=== PATIENT | female | born 1970 | race Caucasian/White ===

== ENCOUNTER 2016-04-10 07:09 | Emergency (ER) | payer OTHER ==
[2016-04-10 07:22] VITALS: BP 118/71; PULSE 62; TEMP 97.8; BMI 32.9
[2016-04-10] MEDS ORDERED: predniSONE 20 MG TABLET (UD) PO ONE (08:20)
[2016-04-10] MEDS ORDERED: ALBUTEROL SO4 2.5/IPRATROPIUM 0.5 INH SOL 3 ML VIAL.NEB. NEB ONE (08:23)
--- NOTE | 2016-04-10 08:28 | PDOC ---
History of Present Illness - General Chief Complaint: Asthma Stated Complaint: ASTHMA/DIFF BREATHING Time Seen by Provider: 04/10/16 08:16 History Source: Patient - History of Present Illness Timing/Duration: reports: this morning Severity: reports: moderate Associated Symptoms: reports: shortness of breath, wheezing. denies: cough, fever/chills Past History - Past Medical History Allergies/Adverse Reactions: Allergies Allergy/AdvReac Type Severity Reaction Status Date / Time No Known Allergies Allergy Verified 04/10/16 07:19 Home Medications: Ambulatory Orders Albuterol Sulfate Inhaler - [Ventolin Hfa *Inhaler*] 2 inh IH ONCE 04/24/11 Azithromycin [Zithromax Z-FILIPPO (5 DAYS) -] 250 mg PO ASDIR #6 tablet 12/17/12 Unobtainable Home Med List 0 dose .ROUTE UTDICT 12/17/12 Prednisone [Deltasone -] 40 mg PO DAILY #8 tablet 04/10/16 Asthma: Yes - Immunization History Td Vaccination: No - Psycho/Social/Smoking Cessation Hx Anxiety: No Suicidal Ideation: No Smoking Status: No Smoking History: Never smoked Have you smoked in the past 12 months: No Number of Cigarettes Smoked Daily: 0 Information on smoking cessation initiated: No Hx Alcohol Use: No Drug/Substance Use Hx: No Substance Use Type: None Review of Systems - Review of Systems Constitutional: No: Chills, Fever Respiratory: Yes: Shortness of Breath, Wheezing. No: Cough Cardiac (ROS): Yes: Chest Tightness *Physical Exam - Vital Signs Last Vital Signs Temp Pulse Resp BP Pulse Ox 97.8 F 62 18 118/71 96 04/10/16 07:19 04/10/16 07:19 04/10/16 07:19 04/10/16 07:19 04/10/16 07:19 - Physical Exam General Appearance: Yes: Appropriately Dressed. No: Apparent Distress HEENT: positive: Normal Voice Neck: positive: Supple Respiratory/Chest: positive: Lungs Clear, Normal Breath Sounds. negative: Respiratory Distress, Wheezing Cardiovascular: positive: Regular Rate, S1, S2 Integumentary: positive: Dry, Warm Neurologic: positive: Fully Oriented, Alert, Normal Mood/Affect Medical Decision Making - Medical Decision Making 04/10/16 08:28 45-year-old female history of asthma, uses albuterol pump at home, last admission over a year ago, no intubations and gets asthma exacerbations approximately once per month with various triggers per patient, presenting with shortness of breath, wheezing and chest tightness this a.m. while at work, not relieved by her pump. Denies cough, fever or chills. Patient reports having similar symptoms a week ago and used her daughter's albuterol pump which did relieve symptoms as per patient. Pt works "around chemicals" but uncertain if chemicals trigger her asthma. No tobacco exposure. Patient in no acute distress and stable w/ clear chest/lungs -nebs -pred -re-eval 04/10/16 08:35 04/10/16 09:25 Patient improved with nebs in ED. Lungs remain clear on re-eval and patient able to ambulate without shortness of breath. Stable for discharge with Pred burst and PMD follow-up as needed *DC/Admit/Observation/Transfer Diagnosis at time of Disposition: Asthma exacerbation - Discharge Dispostion Disposition: HOME Condition at time of disposition: Improved - Prescriptions Prescriptions: Prednisone [Deltasone -] 40 mg PO DAILY #8 tablet - Patient Instructions Printed Discharge Instructions: Asthma -- Adult Additional Instructions: Take medications as directed and follow up with your PMD - Post Discharge Activity Work/School Note: Back to Work
[2016-04-10] MEDS: ALBUTEROL SO4 2.5/IPRATROPIUM 0.5 INH SOL 3 ML VIAL.NEB. NEB SCH ×2 (08:41→09:25)
[2016-04-10] MEDS ORDERED: predniSONE 20 MG TABLET (UD) ONE (08:42)
== END 2016-04-10 09:36 | disposition home or self-care (01) ==
LOC: JER 07:09 → JERFT 07:09
PROC: 3E0F7GC Introduction of Other Therapeutic Substance into Respiratory Tract, Via Natural or Artificial Opening (ICD-10-PCS; principal; 2016-04-10)
DX: J45.901 Unspecified asthma with (acute) exacerbation (principal)
CPT/HCPCS: 94640; 99281-25

== ENCOUNTER 2021-04-28 12:52 | Emergency (ER) | payer OTHER ==
[2021-04-28 13:31] VITALS: TEMP 97.2; BMI 21.9
[2021-04-28] MEDS ORDERED: predniSONE 20 MG TABLET (UD) PO ONE (14:14)
[2021-04-28] MEDS: ALBUTEROL SO4 2.5/IPRATROPIUM 0.5 INH SOL 3 ML VIAL.NEB. NEB SCH (15:00)
[2021-04-28 16:23] VITALS: BP 110/72; PULSE 86
== END 2021-04-28 16:23 | disposition home or self-care (01) ==
LOC: JER 12:52
PROC: 3E0F7GC Introduction of Other Therapeutic Substance into Respiratory Tract, Via Natural or Artificial Opening (ICD-10-PCS; principal; 2021-04-28)
DX: J45.21 Mild intermittent asthma with (acute) exacerbation (principal)
CPT/HCPCS: 71046-TC-FY; 99284-25

== ENCOUNTER 2022-02-20 09:47 | Emergency (ER) | payer OTHER ==
[2022-02-20 10:00] VITALS: BP 116/70; PULSE 90; RESP 16; TEMP 98; BMI 21.2
[2022-02-20] MEDS ORDERED: ACETAMINOPHEN 325 MG TABLET (FP) PO ONE (10:27)
[2022-02-20] MEDS ORDERED: LIDOCAINE 5% TOPICAL PATCH TP ONE (10:28)
[2022-02-20] MEDS ORDERED: ACETAMINOPHEN 325 MG TABLET (FP) ONE (12:18)
[2022-02-20] MEDS ORDERED: LIDOCAINE 5% TOPICAL PATCH ONE (12:18)
[2022-02-20] MEDS ORDERED: LIDOCAINE PATCH REMOVAL MC SCH (22:00)
== END 2022-02-20 12:38 | disposition home or self-care (01) ==
LOC: JER 09:47
DX: M54.50 Low back pain, unspecified (principal)
CPT/HCPCS: 72220-TC-FY; 99283-25

== ENCOUNTER 2022-10-01 15:38 | Emergency (ER) | payer OTHER ==
[2022-10-01 15:43] VITALS: BP 120/71; PULSE 63; RESP 19; TEMP 98.6; BMI 22.1
== END 2022-10-01 18:03 | disposition home or self-care (01) ==
LOC: JERFT 15:38
DX: R07.89 Other chest pain (principal); Y04.0XXA Assault by unarmed brawl or fight, initial encounter
CPT/HCPCS: 71101-TC-LT-FY; 99283-25